=== PATIENT | male | born 1985 | race Hispanic/Latino ===

== ENCOUNTER 2016-12-11 13:28 | Inpatient (IN) | payer BC, MEDICAID ==
--- NOTE | 2016-12-11 13:50 | ED PDOC ---
HPI: Psych/Substance Abuse Time Seen by Provider: 12/11/16 13:39 Chief Complaint (Nursing): Psychiatric Evaluation Chief Complaint (Provider): Crisis History Per: Patient, Other (HPD) Additional Complaint(s): Pt. states for the past several years he's had voices telling him "terrible things I cannot repeat." Pt. states his father forces him to take medications to stop the voices but he thinks they are not working. Pt. states he hears the voices coming from his stomach, arms, and head. Denies SI/HI, hallucinations, abdominal pain, fever, chest pain, SOB, cough, back pain. Past Medical History Reviewed: Historical Data, Nursing Documentation, Vital Signs Vital Signs: Last Vital Signs Temp 97.0 F L 12/11/16 13:36 Pulse 108 H 12/11/16 13:36 Resp 20 12/11/16 13:36 BP 139/95 H 12/11/16 13:36 Pulse Ox 99 12/11/16 13:36 - Medical History PMH: Schizophrenia - Family History Family History: States: No Known Family Hx - Home Medications Home Medications: Ambulatory Orders Medication Instructions Recorded Lamotrigine [Lamictal] 300 mg PO DAILY 12/11/16 Lurasidone HCl [Latuda] 140 mg PO DAILY 12/11/16 Paliperidone Palmitate [Invega 78 mg IM ONCE 12/11/16 Sustenna] - Allergies Allergies/Adverse Reactions: Allergies Allergy/AdvReac Type Severity Reaction Status Date / Time cats Allergy ITCHING Uncoded 12/11/16 13:35 Review of Systems ROS Statement: Except As Marked, All Systems Reviewed And Found Negative - Laboratory Results Result Diagrams: 12/11/16 15:58 12/11/16 15:58 - ECG ECG: Positive for: Interpreted By Me ECG Rhythm: Positive for: Sinus Tachycardia. Negative for: ST/T Changes Rate: 107 O2 Sat by Pulse Oximetry: 99 - Radiology X-Ray: Interpreted by Me (CXR) X-Ray Interpretation: No Acute Disease - Progress ED Course And Treament: Pt. evaluated by crisis and arrangements made for admission. Disposition - Clinical Impression Clinical Impression: Schizophrenia - Patient ED Disposition Is Patient to be Admitted: Yes - Disposition Disposition Time: 18:20 Condition: STABLE
--- NOTE | 2016-12-11 14:13 | RAD ---
HISTORY: clearance COMPARISON: Chest x-ray performed 10/14/12 TECHNIQUE: Chest, one view. FINDINGS: Examination limited by habitus. LUNGS: No focal consolidation. Please note that chest x-ray has limited sensitivity for the detection of pulmonary masses. PLEURA: No significant pleural effusion identified. No definite pneumothorax . CARDIOVASCULAR: Heart size appears within normal limits. OSSEOUS STRUCTURES: No acute osseous abnormality identified. VISUALIZED UPPER ABDOMEN: Unremarkable. OTHER FINDINGS: None. IMPRESSION: No focal consolidation, significant pleural effusion, or definite pneumothorax identified.
[2016-12-11 17:01] LABS: BASO % 0.4 % (0.0-2.0); EOS # 0.1 K/uL (0.0-0.7); EOS % 0.8 % (0.0-4.0); HEMATOCRIT 47.7 % (35.0-51.0); LYMPH # 2.6 K/uL (1.0-4.3); LYMPH % 26.8 % (20.0-40.0); MEAN CELL VOLUME 88.2 fl (80.0-94.0); MEAN CORPUSCULAR HEMOGLOBIN 30.2 pg (27.0-31.0); MEAN CORPUSCULAR HGB CONC 34.3 g/dL (33.0-37.0); MEAN PLATELET VOLUME 8.4 fl (7.2-11.7); MONO # 0.7 K/uL (0.0-0.8); MONO % 7.4 % (0.0-10.0); NEUT # 6.2 K/uL (1.8-7.0); NEUT % 64.6 % (50.0-75.0); NRBC % 0.9 % (0.0-0.0); RED CELL DISTRIBUTION WIDTH 12.4 % (11.5-14.5); WHITE BLOOD COUNT 9.6 K/uL (4.8-10.8)
[2016-12-11 17:07] LABS: URINE BILIRUBIN NEGATIVE (NEGATIVE); URINE BLOOD NEGATIVE (NEGATIVE); URINE COLOR STRAW (YELLOW); URINE GLUCOSE (UA) NEG (Normal); URINE KETONE NEGATIVE (NEGATIVE); URINE LEUKOCYTE ESTERASE NEG Leu/uL (Negative); URINE PROTEIN NEGATIVE (NEGATIVE); URINE UROBILINOGEN 0.2-1.0 mg/dL (0.2-1.0)
[2016-12-11 17:14] LABS: ALB/GLOB RATIO 1.3 (1.0-2.1); ALCOHOL SERUM < 10 mg/dl (0-10); ALKALINE PHOSPHATASE 55 U/L (38-126); ALT/SGPT 51 U/L (21-72); AST/SGOT 26 U/L (17-59); BILIRUBIN,TOTAL 0.5 mg/dl (0.2-1.3); BLOOD UREA NITROGEN 16 mg/dl (9-20); CALCIUM 9.7 mg/dL (8.4-10.2); CARBON DIOXIDE 24 mmol/L (22-30); CHLORIDE 103 mmol/L (98-107); GFR AFRICAN-AMERICAN > 60; GLUCOSE,RANDOM 128 mg/dL (75-110); POTASSIUM 3.5 MMOL/L (3.6-5.0); SODIUM 140 mmol/l (132-148); TOTAL PROTEIN 7.8 G/DL (6.3-8.2)
[2016-12-11 19:43] VITALS: O2SAT 99
[2016-12-11] MEDS ORDERED: DiphenhydrAMINE 50 mg/ml Inj IM PRN (20:29)
[2016-12-11] MEDS ORDERED: Magnesium Hydroxide Susp 30 ml UD PO PRN (20:29)
[2016-12-11] MEDS ORDERED: Alum-Mag Hydrox-Simethicone Susp (30 mL) PO PRN (20:29)
--- NOTE | 2016-12-12 07:12 | CARD ---
APPROVED REPORT EKG Measurement Heart [id number] <Conclusion> Sinus tachycardia Otherwise normal ECG
--- NOTE | 2016-12-12 11:42 | CP.PCM.HP ---
History of Present Illness - History of Present Illness History of Present Illness: 31 year old male admitted for psychosis NOS. No active somatic complaints. 12 pt assessment in review of symptoms negative. Present on Admission - Present on Admission Any Indicators Present on Admission: No Review of Systems - Review of Systems Review of Systems: As per HPI. Past Patient History - Past Social History Smoking Status: Heavy Smoker > 10 Cigarettes Daily - CARDIAC Hx Cardiac Disorders: No - PULMONARY Hx Respiratory Disorders: No Hx Tuberculosis: No - NEUROLOGICAL Hx Neurological Disorder: No HX Cerebrovascular Accident: No Hx Seizures: No - HEENT Hx HEENT Problems: No - RENAL Hx Chronic Kidney Disease: No - ENDOCRINE/METABOLIC Hx Endocrine Disorders: No - HEMATOLOGICAL/ONCOLOGICAL Hx Blood Disorders: No Hx Cancer: No Hx Human Immunodeficiency Virus (HIV): No - INTEGUMENTARY Hx Dermatological Problems: No - MUSCULOSKELETAL/RHEUMATOLOGICAL Hx Back Pain: Yes - GASTROINTESTINAL Hx Gastrointestinal Disorders: No - GENITOURINARY/GYNECOLOGICAL Hx Genitourinary Disorders: No Hx Sexually Transmitted Disorders: No - PSYCHIATRIC Hx Schizophrenia: Yes Hx Substance Use: Yes (hx of cocaine use) - SURGICAL HISTORY Hx Surgeries: No - ANESTHESIA Hx Anesthesia: No Meds Allergies/Adverse Reactions: Allergies Allergy/AdvReac Type Severity Reaction Status Date / Time cats Allergy ITCHING Uncoded 12/11/16 13:35 Physical Exam - Head Exam Head Exam: ATRAUMATIC, NORMOCEPHALIC - Respiratory Exam Respiratory Exam: NORMAL BREATHING PATTERN. absent: Rales, Rhonchi, Wheezes - Cardiovascular Exam Cardiovascular Exam: REGULAR RHYTHM, +S1, +S2 - GI/Abdominal Exam GI & Abdominal Exam: Soft. absent: Distended, Tenderness - Extremities Exam Extremities exam: Positive for: pedal pulses present. Negative for: pedal edema , tenderness - Neurological Exam Neurological exam: Alert, CN II-XII Intact Results - Vital Signs Recent Vital Signs: Last Vital Signs Temp 97.9 F 12/11/16 21:00 Pulse 95 H 12/11/16 21:00 Resp 20 12/11/16 21:00 BP 143/100 H 12/11/16 21:00 Pulse Ox 99 12/11/16 19:43 - Labs Result Diagrams: 12/11/16 15:58 12/11/16 15:58 Assessment & Plan - Assessment and Plan (Free Text) Plan: 1. Psychosis, NOS Decompensation - Primary team- Psychiatry - Milieu 2. Consider HTN vs. Component of Metabolic Syndrome - Lipid Panel - TSH - Monitor pressures - HgbA1c
[2016-12-12 12:05] LABS: T4 6.45 ug/dl (5.5-11.0)
[2016-12-12 12:19] LABS: THYROID STIMULATING HORMONE 1.74 mIU/ML (0.46-4.68)
--- NOTE | 2016-12-12 13:14 | PCM.PSYCH ---
Initial Psychiatric Evaluation - Initial Psychiatric Evaluation Type of Admission: Voluntary Legal Status: Capacity Chief Complaint (in patient's own words): i am lethargic Patient's Reaction to Hospitalization: ambivalent History of Present Illness and Precipitating Events: 31 yo male, living with parents. history of schizophrenia, substance use. he is non-adherent with treatment. he has become increasingly psychotic and states he will not take medications. apparently got injectable depot form of invega on 11/28. stopped taking oral meds. behavior increasingly bizarre. pt tells me he does not have schizophrenia, but has 3 souls inside of him who constantly talk- criticize him, argue with each other, try to control him. he feels they are not part of a mental illness. he states he feels the souls moving around his body and states they can leave him and come back. he states for the last year all he wants to do is lay in bed and smoke cigarettes. he states he has thought of suicide just to "get rid of them" but states he "doesn't have the balls to do it." he reports he has been sober a year. apparently he was doing well in a residental program in [place]. took clozaril in the past per family who contacted social insurance administrator. pt currently is only asking to drink water and to take ativan for anxiety. he does not want to take antipsychotic medication. Current Medications: Active Medications Generic Name Dose Route Start Last Admin Trade Name Freq PRN Reason Stop Dose Admin Acetaminophen 650 mg 12/11/16 20:29 Tylenol 325mg Tab PO Q4 PRN pain level 1 to 7 Al Hydrox/Mg Hydrox/Simethicone 30 ml 12/11/16 20:29 Maalox Plus 30 Ml PO Q4 PRN Dyspepsia Diphenhydramine HCl 50 mg 12/11/16 20:29 12/12/16 04:51 Benadryl PO 50 mg Q6 PRN Administration Extrapyramidal Symptoms Diphenhydramine HCl 50 mg 12/11/16 20:29 Benadryl IM Q6 PRN Extrapyramidal S/S Unable PO Haloperidol 5 mg 12/11/16 20:29 Haldol PO Q4 PRN Agitation Haloperidol Lactate 5 mg 12/11/16 20:29 Haldol IM Q4 PRN Agitation, Unable to Take PO Lorazepam 2 mg 12/11/16 20:29 12/12/16 04:51 Ativan PO 2 mg Q4 PRN Administration Anxiety/Agitation Lorazepam 2 mg 12/11/16 20:29 12/11/16 21:39 Ativan IM 2 mg Q4 PRN Administration Anxiety/Agitation,Unable PO Magnesium Hydroxide 30 ml 12/11/16 20:29 Milk Of Magnesia PO HS PRN Constipation Nicotine 1 patch 12/12/16 09:00 12/12/16 12:45 Nicoderm Cq TD 1 patch DAILY DEV Administration Quetiapine Fumarate 300 mg 12/12/16 22:00 Seroquel PO HS DEV Tramadol HCl 50 mg 12/11/16 21:19 Ultram PO Q6 PRN Pain, severe (8-10) Past Psychiatric History - Past Psychiatric History Previous Treatment History: Inpatient Prior Professional Help: multiple admissions Prior Psychiatric Treatment: was on prolixin, invega deconoate. lamictal, seroquel, etc. refusing meds History of Abuse: denies History of ETOH/Drug Use: he is a poor historian. states he smokes 3 packs of cigarettes daily. states he is sober from drugs/alcohol for a year. states he used cocain in past. History of Family Illness: unknown Pertinent Medical Hx (Current Medical&Sleep Prob, Allergies): Allergies Allergy/AdvReac Type Severity Reaction Status Date / Time cats Allergy ITCHING Uncoded 12/11/16 13:35 Lamotrigine [Lamictal] 300 mg PO DAILY 12/11/16 Lurasidone HCl [Latuda] 140 mg PO DAILY 12/11/16 Paliperidone Palmitate [Invega Sustenna] 78 mg IM ONCE 12/11/16 Review of Systems - Psychiatric Psychiatric: As Per HPI Mental Status Examination - Personal Presentation Personal Presentation: Looks stated age - Affect Affect: Blunted - Motor Activity Motor Activity: Calm - Reliability in Providing Information Reliability in Providing Information: Poor, due to alteration in thoughts - Speech Speech: Disorganized - Mood Mood: Anxious - Formal Thought Process Formal Thought Process: Hallucinations, Delusions, Paranoia, Loosening of associations - Hallucinations/Delusions Hallucinations: Auditory - Obsessions/Compulsions Obsessions: No Compulsions: No - Cognitive Functions Orientation: Person, Place, Situation, Time Sensorium: Alert Attention/Concentration: Easily distracted Abstract Thinking: Brogan Estimate of Intelligence: Average Judgement: Intact, as evidence by: Insight regarding need for hospitalization ( but does not want to take medications) Memory: Recent intact, as evidence by: Ability to recall events of the day - Risk Risk: Suicidal (reports thoughts, but not any plan, intent), Diminished functioning - Strength & Assets Inventory Strength & Assets Inventory: Intelligence, Family support - Limitations Limitations: Other (non-adherence) DSM 5 DX - DSM 5 DSM 5 Diagnosis: schizophrenia, paranoid type - Recommended/Plan of Treatment Treatment Recommendations and Plan of Treatment: admit to [facility] for safety and observation gather collateral information provide supportive therapy adjust medications- will continue seroquel 300mg hs. encourage pt to restart clozaril as it was effective in the past. hospitalist consult disposition planning- may need to be screened for involuntary hospitalization if he does not want to take medications/receive treatment Projected ELOS: 7-10 days Prognosis: fair - Smoking Cessation Smoking Cessation Initiated: Yes
--- NOTE | 2016-12-13 11:23 | PCM.PYCHPN ---
Psychiatric Progress Note - Psychiatric Progress Note Patient seen today, length of contact: in treatment team Patient Chief Complaint: i will only take ativan Problems Identified/Issues Discussed: pt seen in treatment team. he is refusing to take any antipsychotic medication. he is asking for ativan. he states he is hearing voices. feels he may explode from inside. he is pacing halls, yelling at staff at times. PACT has called [facility] and indicated pt refused his last injection of invega and has not been adherent with any antipsychotics. pt's behavior is intimidating other pt's on unit. his behaviors are grossly disorganized. he is insisting he does not have schizophrenia. Medication Change: No (refusing to take antipsychotics) Medical Record Reviewed: Yes Mental Status Examination - Cognitive Function Orientation: Person, Place, Situation, Time Memory: Intact Attention: Poor Concentration: Poor Association: Loose Fund of Knowledge: WNL Decription of patient's judgement and insights: poor insight - Mood Mood: Anxious - Affect Affect: Other Additional comments: labile - Speech Speech: Loud - Formal Thought Process Formal Thought Process: Hallucinations, Delusions, Paranoia, Loosening of associations Psychotic Thoughts and Behaviors: paranoid, auditory hallucinations - Suicidal Ideation Suicidal Ideation: No - Homicidal Ideation Homicidal Ideation: No Goal/Treatment Plan - Goal/Treatment Plan Need for Continued Stay: Remain at risks for inpatient hospitalization, Discharge may exacerbated symptoms, Severe functional impairment Progress Toward Problem(s) and Goals/Treatment Plan: schizoaffective disorder pt needs further treatment and stabilization his thoughts and behavior are grossly disorganized and he has psychotic symptoms that he is refusing treatment for even with PACT services he is refusing appropriate treatment here and becoming agitated and intimidating staff and other pts will screen for involuntary hospitalization pt has refused to take clozaril, refused invega and other antipsychotics. was able to get pt to take seroquel with maximum prompting but he indicates he does not want to take it. Estimated Date of D/C: 12/20/16 - Smoking Cessation Smoking Cessation Initiated: Yes
--- NOTE | 2016-12-14 10:05 | PCM.PYCHPN ---
Psychiatric Progress Note - Psychiatric Progress Note Patient seen today, length of contact: discussed with team Patient Chief Complaint: when am i leaving Problems Identified/Issues Discussed: pt remains with psychotic symptoms. continues to refuse anything but seroquel. denies having mental illness. aware of pending transfer to [facility] [place] [facility]. received prn ativan /benadryl today for agitation, but refused haldol. Medication Change: Yes (increase seroquel) Medical Record Reviewed: Yes Mental Status Examination - Cognitive Function Orientation: Person, Place, Situation, Time Memory: Intact Attention: Poor Concentration: Poor Association: Loose Fund of Knowledge: WNL Decription of patient's judgement and insights: poor - Mood Mood: Anxious - Affect Affect: Other - Speech Speech: Loud - Formal Thought Process Formal Thought Process: Hallucinations, Delusions, Paranoia, Loosening of associations Psychotic Thoughts and Behaviors: grossly disorganized thoughts - Suicidal Ideation Suicidal Ideation: No - Homicidal Ideation Homicidal Ideation: No Goal/Treatment Plan - Goal/Treatment Plan Need for Continued Stay: Remain at risks for inpatient hospitalization, Discharge may exacerbated symptoms, Severe functional impairment Progress Toward Problem(s) and Goals/Treatment Plan: schizoaffective disorder pt needs further treatment and stabilization awaiting bed at [facility] will increase seroquel to 400mg hs Estimated Date of D/C: 12/20/16 - Smoking Cessation Smoking Cessation Initiated: Yes
[2016-12-15 09:19] VITALS: BP 133/73; PULSE 82; TEMP 97.5
--- NOTE | 2016-12-15 12:45 | PCM.PYCHPN ---
Psychiatric Progress Note - Psychiatric Progress Note Patient seen today, length of contact: discussed with team Patient Chief Complaint: when can i go home Problems Identified/Issues Discussed: pt continues to pace angrily around the unit. he is yelling that he want's to go home. he demands ativan. he denies having a mental illness. he is taking seroquel as scheduled. Medication Change: Yes (increase seroquel) Medical Record Reviewed: Yes Mental Status Examination - Cognitive Function Orientation: Person, Place, Situation, Time Memory: Intact Attention: Poor Concentration: Poor Association: Loose Fund of Knowledge: WNL Decription of patient's judgement and insights: poor - Mood Mood: Anxious - Affect Affect: Other - Speech Speech: Loud - Formal Thought Process Formal Thought Process: Hallucinations, Delusions, Paranoia, Loosening of associations Psychotic Thoughts and Behaviors: pt paranoid, with delusions, auditory hallucinations - Suicidal Ideation Suicidal Ideation: No - Homicidal Ideation Homicidal Ideation: No Goal/Treatment Plan - Goal/Treatment Plan Need for Continued Stay: Remain at risks for inpatient hospitalization, Discharge may exacerbated symptoms, Severe functional impairment Progress Toward Problem(s) and Goals/Treatment Plan: schizoaffective disorder pt needs further treatment and stabilization awaiting bed at [facility] will increase seroquel to 400mg hs and 100mg in am Estimated Date of D/C: 12/20/16 - Smoking Cessation Smoking Cessation Initiated: Yes
--- NOTE | 2016-12-15 16:53 | CP.PCM.PN ---
Subjective - Date & Time of Evaluation Date of Evaluation: 12/15/16 Time of Evaluation: 07:40 - Subjective Subjective: Pt seen resting in bed. Appears slightly anxious. Says he wants to go home, states he is feeling better, denies any auditory or visual hallucinations. He does not want to get transferred to [facility]. He otherwise has no complaints, has been sleeping fine, appetite is normal. Denies chest pain, SOB, N/V/D. Objective - Vital Signs/Intake and Output Vital Signs (last 24 hours): Temp Pulse Resp BP Pulse Ox 97.5 F L 82 18 133/73 99 12/15/16 13:55 12/15/16 13:55 12/15/16 13:55 12/15/16 13:55 12/11/16 19:43 - Medications Medications: Current Medications Acetaminophen (Tylenol 325mg Tab) 650 mg PO Q4 PRN PRN Reason: pain level 1 to 7 Last Admin: 12/15/16 13:55 Dose: 650 mg Al Hydrox/Mg Hydrox/Simethicone (Maalox Plus 30 Ml) 30 ml PO Q4 PRN PRN Reason: Dyspepsia Diphenhydramine HCl (Benadryl) 50 mg PO Q6 PRN PRN Reason: Extrapyramidal Symptoms Last Admin: 12/14/16 08:40 Dose: 50 mg Diphenhydramine HCl (Benadryl) 50 mg IM Q6 PRN PRN Reason: Extrapyramidal S/S Unable PO Haloperidol (Haldol) 5 mg PO Q4 PRN PRN Reason: Agitation Haloperidol Lactate (Haldol) 5 mg IM Q4 PRN PRN Reason: Agitation, Unable to Take PO Lorazepam (Ativan) 2 mg PO Q4 PRN PRN Reason: Anxiety/Agitation Last Admin: 12/14/16 15:23 Dose: 2 mg Lorazepam (Ativan) 2 mg IM Q4 PRN PRN Reason: Anxiety/Agitation,Unable PO Last Admin: 12/11/16 21:39 Dose: 2 mg Magnesium Hydroxide (Milk Of Magnesia) 30 ml PO HS PRN PRN Reason: Constipation Nicotine (Nicoderm Cq) 1 patch TD DAILY [facility] Last Admin: 12/15/16 16:09 Dose: 1 patch Quetiapine Fumarate (Seroquel) 400 mg PO HS DEV Last Admin: 12/14/16 22:06 Dose: 400 mg Quetiapine Fumarate (Seroquel) 100 mg PO DAILY DEV Tramadol HCl (Ultram) 50 mg PO Q6 PRN PRN Reason: Pain, severe (8-10) Last Admin: 12/13/16 16:36 Dose: 50 mg - Constitutional Appears: No Acute Distress - Head Exam Head Exam: ATRAUMATIC, NORMAL INSPECTION, NORMOCEPHALIC - Respiratory Exam Respiratory Exam: Clear to Ausculation Bilateral, NORMAL BREATHING PATTERN - Cardiovascular Exam Cardiovascular Exam: REGULAR RHYTHM, +S1, +S2 - Neurological Exam Neurological Exam: Alert, Awake, CN II-XII Intact, Oriented x3 Assessment and Plan - Assessment and Plan (Free Text) Assessment: 1. Schitzoaffective disorder - Primary team- Psychiatry - Continue psych medication as per psych - awating bed at [facility] for transfer of pt 2. Obesity - Lipid Panel: WNL - TSH: WNL - Monitor pressures: BP well controlled without medication, continue to monitor - HgbA1c : 5.6
[2016-12-15 17:23] VITALS: RESP 20
--- NOTE | 2016-12-18 08:51 | PCM.PYCHDC ---
Mental Status Examination - Mental Status Examination Description of patient's judgement and insight: poor Psychotic Thoughts and Behaviors: pt paranoid, with delusions, auditory hallucinations Suicidal Ideation: No Current Homicidal Ideation?: No Plan: see mse from progress note 12/15/16 Discharge Summary - Discharge Note Reason for Hospitalization: psychosis, agitation. non-adherence with medication Psychiatric History (includes Medical, Family, Personal Hx): history of schizoaffective disorder, pact team, prior hospitalizations Consultations:: List each consultation separately and include: 1. Reason for request. 2. Findings. 3. Follow-up Summary of Hospital Course include:: 1. Description of specific treatment plan utilized for patients during their course of treatmen. 2. Summarize the time- course for resolution of acute symptoms and/or regressed behaviors. 3. Describe issues identified and worked on during hospitalization. 4. Describe medication utilized. 5. Describe medical problems identified and treated. 6. Reassessment of suicide risk Summary of Hospital Course: 31 yo male, living with parents. history of schizophrenia, substance use. he is non-adherent with treatment. he has become increasingly psychotic and states he will not take medications. apparently got injectable depot form of invega on 11/28. stopped taking oral meds. behavior increasingly bizarre. pt tells me he does not have schizophrenia, but has 3 souls inside of him who constantly talk- criticize him, argue with each other, try to control him. he feels they are not part of a mental illness. he states he feels the souls moving around his body and states they can leave him and come back. he states for the last year all he wants to do is lay in bed and smoke cigarettes. he states he has thought of suicide just to "get rid of them" but states he "doesn't have the balls to do it." he reports he has been sober a year. apparently he was doing well in a residental program in [place]. took clozaril in the past per family who contacted elementary school social worker. pt currently is only asking to drink water and to take ativan for anxiety. he does not want to take antipsychotic medication. hospital course: pt admitted to [facility] and was seen by the medical front desk coordinator and the treatment team. he was placed on routine safety protocols. he refused to stay in the hospital, was pacing, easily agitated and threatening to leave the hospital. he only would take seroquel with maximum prompting. he was loud and disruptive of other peers treatment. he was screened for involuntary hospitalization as he was not agreeable to voluntary treatment. he was accepted at [facility] and was transferred there on an involuntary status when a bed was available. - Final Diagnosis (DSM 5) Condition upon Discharge: STABLE DSM 5: schizoaffective disorder, bipolar type Disposition: Trans to Other Acute Care Hosp Follow-up Treatment Plan: follow up with the treatment team at [facility] - Smoking Cessation Smoking Cessation Medication prescribed: Yes - Antipsychotic Medications Pt discharged on 2 or more routine antipsychotic medications: No
== END 2016-12-15 23:40 | DRG 430 ==
LOC: H.ER 13:28 → H.ERHOLD 18:20 → H.PSYCH 19:43
PROVIDERS: ADMIT Psychiatry & Neurology Psychiatry; ATTEND Psychiatry & Neurology Psychiatry
PROC: GZHZZZZ Group Psychotherapy (ICD-10-PCS; principal; 2016-12-11)
PROC: GZ56ZZZ Individual Psychotherapy, Supportive (ICD-10-PCS; 2016-12-11)
DX: F25.0 Schizoaffective disorder, bipolar type (principal); Z91.14 Patient's other noncompliance with medication regimen; E66.9 Obesity, unspecified; F17.210 Nicotine dependence, cigarettes, uncomplicated; Z68.31 Body mass index [BMI] 31.0-31.9, adult